=== PATIENT | male | born 2000 | race African-American/Black ===

== ENCOUNTER 2021-04-18 10:25 | Emergency (ER) | payer OTHER ==
[~2021-04-18] VITALS: Ht 180.3 cm; Wt 130.6 kg
[2021-04-18 10:42] VITALS: BP 152/86
--- NOTE | 2021-04-18 11:09 | PHYS DOC ---
Past History Past Surgical History: No Surgical History Alcohol Use: None General Adult EDM: Chief Complaint: FINGER INJURY HPI: HPI: 21-year-old male presents with left thumb laceration. The patient was using a paper cutting device at work when it slipped and his finger got in it. And sliced down through the nail possibly into the finger but he is not sure. There was bleeding but it has stopped at this time. There is good alignment of the nail. No significant subungal hematoma. The patient's tetanus is not up-to-date. He denies any other injuries or complaints at this time. Review of Systems: Review of Systems: Constitutional: Denies fever or chills Eyes: Denies change in visual acuity HENT: Denies nasal congestion or sore throat Respiratory: Denies cough or shortness of breath Cardiovascular: Denies chest pain or edema GI: Denies abdominal pain, nausea, vomiting, bloody stools or diarrhea : Denies dysuria Musculoskeletal: Laceration left thumb Integument: Denies rash Neurologic: Denies headache, focal weakness or sensory changes Endocrine: Denies polyuria or polydipsia Lymphatic: Denies swollen glands Psychiatric: Denies depression or anxiety Allergies: Allergies: Allergies Coded Allergies Type Severity Reaction Last Updated Verified No Known Drug Allergies 04/18/21 No Physical Exam: PE: Constitutional: Well developed, well nourished, no acute distress, non-toxic appearance. [] HENT: Normocephalic, atraumatic, bilateral external ears normal, oropharynx moist, no oral exudates, nose normal. [] Eyes: PERRLA, EOMI, conjunctiva normal, no discharge. [] Neck: Normal range of motion, no tenderness, supple, no stridor. [] Cardiovascular: Heart rate regular rhythm, no murmur [] Lungs & Thorax: Bilateral breath sounds clear to auscultation [] Abdomen: Bowel sounds normal, soft, no tenderness, no masses, no pulsatile masses. [] Skin: 1.5 cm linear laceration of the left thumb including the nail. [] Back: No tenderness, no CVA tenderness. [] Extremities: No tenderness, no cyanosis, no clubbing, ROM intact, no edema. [] Neurologic: Alert and oriented X 3, normal motor function, normal sensory function, no focal deficits noted. [] Psychologic: Affect normal, judgement normal, mood normal. [] Current Patient Data: Vital Signs: Vital Signs Date Time Temp Pulse Resp B/P (MAP) Pulse Ox O2 Delivery O2 Flow Rate FiO2 04/18/21 10:42 98.2 71 20 152/86 Room Air EKG: EKG: [] Radiology/Procedures: Radiology/Procedures: [] Heart Score: C/O Chest Pain: N/A Risk Factors: Risk Factors: DM, Current or recent (<one month) smoker, HTN, HLP, family hist ory of CAD, obesity. Risk Scores: Score 0 - 3: 2.5% MACE over next 6 weeks - Discharge Home Score 4 - 6: 20.3% MACE over next 6 weeks - Admit for Clinical Observation Score 7 - 10: 72.7% MACE over next 6 weeks - Early Invasive Strategies Course & Med Decision Making: Course & Med Decision Making Pertinent Labs and Imaging studies reviewed. (See chart for details) The patient's wound has been cleaned up. Based on my exam, I do not believe any repair is warranted. There is excellent realignment of the nail. We will place a Band-Aid on it and a splint to protect the area. His tetanus was updated in the ER. He is stable for discharge at this time. [] Dragon Disclaimer: Dragon Disclaimer: This electronic medical record was generated, in whole or in part, using a voice recognition dictation system. Departure Departure: Impression: Primary Impression: Laceration of left thumb with damage to nail Qualified Codes: S61.112A - Laceration without foreign body of left thumb with damage to nail, initial encounter Disposition: HOME / SELF CARE / HOMELESS Condition: STABLE Referrals: JAMIE CANTOR DO (PCP) Patient Instructions: Fingertip Laceration NIDHI CEBALLOS DO Apr 18, 2021 11:08
[2021-04-18] MEDS ORDERED: DIPH,PERTUSS(ACELL),TET VAC/PF 0.5 ML SYRINGE. VAX IM ONE (11:15)
== END 2021-04-18 11:18 | disposition home or self-care (01) ==
LOC: ER 10:25
DX: S61.122A Laceration with foreign body of left thumb with damage to nail, initial encounter (principal); W26.8XXA Contact with other sharp object(s), not elsewhere classified, initial encounter; Y93.89 Activity, other specified; Y92.89 Other specified places as the place of occurrence of the external cause; Y99.0 Civilian activity done for income or pay
CPT/HCPCS: 29125; 90471; 90715; 99283